=== PATIENT | male | born 1955 | race Caucasian/White ===

== ENCOUNTER 2020-01-13 11:27 | Day surgery (SDC) | payer BC, MEDICARE ==
[2020-01-13] MEDS ORDERED: Sodium Chloride 0.9% 2.5 ML Syringe FLUSH PRN (11:35)
[2020-01-13] MEDS ORDERED: Sodium Chloride 0.9% 10 ML Syringe FLUSH PRN (11:35)
--- NOTE | 2020-01-13 11:46 | EDM.PDOC ---
ED HPI GENERAL MEDICAL PROBLEM - General Chief Complaint: Abdominal Pain Stated Complaint: PAIN IN ABD SENT FROM DR RANGEL Time Seen by Provider: 01/13/20 11:46 Source of Information: Reports: Patient History Limitations: Reports: No Limitations - History of Present Illness INITIAL COMMENTS - FREE TEXT/NARRATIVE: HISTORY AND PHYSICAL: History of present illness: Patient is a 64-year-old male presents to the ED with complaint of right lower abdominal pain. Patient states that he has had generalized abdominal discomfort and bloating for the past week and in the last 3 to 4 days has localized to his right lower quadrant. Patient was seen in Dr. Rangel's clinic this morning and sent to the ED for work-up of possible appendicitis. Patient had labs done in the clinic and have a white count of 13. Patient denies fevers, chills, nausea, vomiting. He states he has been constipated for the past week and a half and recently took some laxatives and had some loose nonbloody stools a couple of days ago. Patient reports history of diabetes. He denies past surgical history. Review of systems: As per history of present illness and below otherwise all systems reviewed and negative. Past medical history: As per history of present illness and as reviewed below otherwise noncontributory. Surgical history: As per history of present illness and as reviewed below otherwise noncontributory. Social history: No reported history of drug or alcohol abuse. Family history: As per history of present illness and as reviewed below otherwise noncontributory. Physical exam: General: Patient sitting comfortably in no acute distress and nontoxic appearing HEENT: Atraumatic, normocephalic, pupils reactive, negative for conjunctival pallor or scleral icterus, mucous membranes moist, throat clear, neck supple, nontender, trachea midline. No meningeal signs. Lungs: Clear to auscultation, breath sounds equal bilaterally, chest nontender. Heart: S1S2, regular, negative for clicks, rubs, or overt murmur. Abdomen: Right lower quadrant tenderness to palpation. Bowel sounds normal. Soft, nondistended. Negative for masses or hepatosplenomegaly. Negative for costovertebral tenderness. No rigidity, rebound, guarding. Pelvis: Stable nontender. Genitourinary: Deferred. Rectal: Deferred. Extremities: Atraumatic, negative for cords or calf pain. Neurovascular unremarkable. Neuro: Awake, alert, oriented. Cranial nerves II through XII unremarkable. Cerebellum unremarkable. Motor and sensory unremarkable throughout. Exam nonfocal. Notes: WBC count 12.62. Creat 1.1. GFR 67 Diagnostics: CT abdomen pelvis with contrast Therapeutics: 1L Normal saline IV Declined pain medication Prescriptions: Impression: Acute appendicitis Plan: Discussed with Dr. Diego, patient will be taken to same day surgery for appendectomy. Definitive disposition and diagnosis as appropriate pending reevaluation and review of above. right lower abdominal Pain Score (Numeric/FACES): 6 - Related Data Allergies Allergy/AdvReac Type Severity Reaction Status Date / Time No Known Allergies Allergy Verified 01/13/20 11:50 Home Meds: Home Meds Aspirin 81 mg PO DAILY 01/13/20 [History] Empagliflozin [Jardiance] 1 tab PO DAILY 01/13/20 [History] Insulin Glarg,Human.Rec.Analog [Lantus] 45 unit SQ BEDTIME 01/13/20 [History] Omeprazole Magnesium [Prilosec Otc] 1 tab PO DAILY PRN 01/13/20 [History] Rosuvastatin [Crestor] 0.5 tab PO BEDTIME 01/13/20 [History] lisinopriL [Lisinopril] 1 tab PO DAILY 01/13/20 [History] sitaGLIPtin Phos/Metformin HCl [Janumet 50-1,000 MG] 1 tab PO BID 01/13/20 [ History] ED ROS GENERAL - Review of Systems Review Of Systems: Comprehensive ROS is negative, except as noted in HPI. ED EXAM, GI/ABD - Physical Exam Exam: See Below (See Dictation) Course - Vital Signs Last Recorded V/S: Last Vital Signs Temp 97.2 F 01/13/20 11:46 Pulse 78 01/13/20 13:31 Resp 18 01/13/20 13:31 BP 104/67 01/13/20 13:31 Pulse Ox 98 01/13/20 13:31 - Orders/Labs/Meds Orders: Active Orders 24 hr Category Date Time Status Sodium Chloride 0.9% [Normal Saline] 1,000 ml Med 01/13/20 13:45 Ordered IV ASDIRECTED Sodium Chloride 0.9% [Saline Flush] Med 01/13/20 11:35 Active 10 ml FLUSH ASDIRECTED PRN Sodium Chloride 0.9% [Saline Flush] Med 01/13/20 11:35 Active 2.5 ml FLUSH ASDIRECTED PRN Saline Lock Insert [OM.PC] Stat Oth 01/13/20 11:35 Ordered Medication Orders Sodium Chloride (Normal Saline) 1,000 mls @ 120 mls/hr IV ASDIRECTED TERESITA Last Admin: 01/13/20 13:52 Dose: 120 mls/hr Sodium Chloride (Saline Flush) 10 ml FLUSH ASDIRECTED PRN PRN Reason: Keep Vein Open Last Admin: 01/13/20 13:54 Dose: 10 ml Sodium Chloride (Saline Flush) 2.5 ml FLUSH ASDIRECTED PRN PRN Reason: Keep Vein Open Last Admin: 01/13/20 13:54 Dose: 2.5 ml Meds: Medications Generic Name Dose Route Start Last Admin Trade Name Freq PRN Reason Stop Dose Admin Sodium Chloride 1,000 mls @ 120 mls/hr 01/13/20 13:45 01/13/20 13:52 Normal Saline IV 120 mls/hr ASDIRECTED TERESITA Administration Sodium Chloride 10 ml 01/13/20 11:35 01/13/20 13:54 Saline Flush FLUSH 10 ml ASDIRECTED PRN Administration Keep Vein Open Sodium Chloride 2.5 ml 01/13/20 11:35 01/13/20 13:54 Saline Flush FLUSH 2.5 ml ASDIRECTED PRN Administration Keep Vein Open Discontinued Medications Generic Name Dose Route Start Last Admin Trade Name Freq PRN Reason Stop Dose Admin Cefoxitin Sodium 2 gm/ Premix 50 mls @ 100 mls/hr 01/13/20 13:32 01/13/20 13: 53 IV 01/13/20 14:01 100 mls/hr ONETIME ONE Administration Iopamidol 100 ml 01/13/20 13:07 01/13/20 13:08 Isovue Multipack-370 (76%) IVPUSH 01/13/20 13:08 100 ml ONETIME STA Administration Departure - Departure Time of Disposition: 14:05 Disposition: Still A Patient 30 Condition: Good Clinical Impression: Acute appendicitis - Discharge Information Referrals: Blas Rangel MD [Primary Care Provider] - Forms: ED Department Discharge Sepsis Event Note - Focused Exam Vital Signs: Vital Signs Temp Pulse Resp BP Pulse Ox 01/13/20 13:31 78 18 104/67 98 01/13/20 11:46 97.2 F 85 18 113/64 99 Date Exam was Performed: 01/13/20 Time Exam was Performed: 14:04 - My Orders Last 24 Hours: My Active Orders 01/13/20 11:35 Sodium Chloride 0.9% [Saline Flush] 10 ml FLUSH ASDIRECTED PRN Sodium Chloride 0.9% [Saline Flush] 2.5 ml FLUSH ASDIRECTED PRN Saline Lock Insert [OM.PC] Stat 01/13/20 13:45 Sodium Chloride 0.9% [Normal Saline] 1,000 ml IV ASDIRECTED - Assessment/Plan Last 24 Hours: My Active Orders 01/13/20 11:35 Sodium Chloride 0.9% [Saline Flush] 10 ml FLUSH ASDIRECTED PRN Sodium Chloride 0.9% [Saline Flush] 2.5 ml FLUSH ASDIRECTED PRN Saline Lock Insert [OM.PC] Stat 01/13/20 13:45 Sodium Chloride 0.9% [Normal Saline] 1,000 ml IV ASDIRECTED
[2020-01-13] MEDS ORDERED: Iopamidol 755 MG/ML 500 ML Multipack Bottle IVPUSH STA (13:07)
--- NOTE | 2020-01-13 13:23 | CT ---
CT abdomen and pelvis Technique: Multiple axial sections were obtained from above the dome of the diaphragm inferiorly through the pubic symphysis. Intravenous contrast was utilized. No oral contrast has been given. Findings: Appendix is mildly enlarged with surrounding inflammatory change which is felt compatible with appendicitis. Other findings: Visualized lung bases show nothing acute. Focal fat is noted next to the ligamentum teres fissure which is a normal variant. Liver shows no other focal abnormality. Spleen appears within normal limits. Adrenal glands show no nodule. Pancreas shows no discrete abnormality. Kidneys show symmetric contrast enhancement. Cyst is noted within the left kidney measuring 2.4 cm in size. Aorta shows atherosclerotic calcification without aneurysm. Numerous gallstones are seen within the gallbladder. No retroperitoneal adenopathy or mesenteric abnormalities are seen. No pelvic mass or adenopathy is seen. Prostate gland is mildly enlarged. Bone window settings were reviewed which shows mild scattered degenerative change within the spine. No acute osseous finding is appreciated. Impression: 1. Findings compatible with appendicitis. 2. Numerous gallstones. 3. Other findings believed to be incidental as noted above. Diagnostic code #5 This report was dictated in MDT
[2020-01-13] MEDS ORDERED: cefOXitin 2 GM in Premix Bag 1 BAG IV ONE (13:32)
[2020-01-13] MEDS ORDERED: Sodium Chloride 0.9% 1,000 ML IV SCH (13:45)
[2020-01-13] MEDS ORDERED: Lactated Ringers 1,000 ML IV SCH (14:30)
--- NOTE | 2020-01-13 14:35 | PCM.SN.2 ---
- Free Text/Narrative Note: pt seen, chart reviewed, acute appendicitis; to or, rb dw pt re bleeding/ infection/damage to nearby organs/pain manangement/postop course; pt concur and proceed; [id number]
[2020-01-13] MEDS ORDERED: Bupivacaine 0.25%/EPINEPHrine 1:200,000 10 ML SDV ONE (14:37)
[2020-01-13] MEDS ORDERED: Midazolam 1 MG/ML 2 ML SDV ONE (14:48)
[2020-01-13] MEDS ORDERED: Propofol 200 MG/20 ML SDV ONE (14:48)
[2020-01-13] MEDS ORDERED: fentaNYL 250 MCG/5 ML SDV ONE (14:48)
[2020-01-13] MEDS ORDERED: Rocuronium 100 MG/10 ML Syringe ONE ×2 (14:49→15:13)
[2020-01-13] MEDS ORDERED: Lidocaine 2% 5 ML SDV ONE (14:50)
[2020-01-13] MEDS ORDERED: Glycopyrrolate 0.2 MG/ML SDV ONE (14:50)
[2020-01-13] MEDS ORDERED: Ketorolac 30 MG/ML SDV ONE (14:50)
[2020-01-13] MEDS ORDERED: Ondansetron 4 MG/2 ML SDV ONE (14:50)
[2020-01-13] MEDS ORDERED: Sugammadex Sodium 200 MG/2 ML VIAL ONE (14:54)
[2020-01-13] MEDS ORDERED: Acetaminophen 1,000 MG in Premix Bag 1 BAG IV PRN (15:33)
[2020-01-13] MEDS ORDERED: fentaNYL 100 MCG/2 ML SDV IVPUSH PRN (15:33)
--- NOTE | 2020-01-13 15:33 | PCM.PREANE ---
Preanesthetic Assessment - Anesthesia/Transfusion/Family Hx Anesthesia History: Prior Anesthesia Without Reaction Family History of Anesthesia Reaction: No Transfusion History: No Prior Transfusion(s) - Physical Assessment NPO Status Date: 01/13/20 NPO Status Time: 09:00 Vital Signs: Last Vital Signs Temp 36.2 C 01/13/20 11:46 Pulse 78 01/13/20 13:31 Resp 18 01/13/20 13:31 BP 104/67 01/13/20 13:31 Pulse Ox 98 01/13/20 13:31 Height: 1.93 m Weight: 95.254 kg ASA Class: 2E Thyro-Mental Finger Breadths: 3 Mouth Opening Finger Breadths: 3 - Allergies Allergies/Adverse Reactions: Allergies Allergy/AdvReac Type Severity Reaction Status Date / Time No Known Allergies Allergy Verified 01/13/20 11:50 - Acknowledgements Anesthesia Type Planned: General Anesthesia Pt an Appropriate Candidate for the Planned Anesthesia: Yes Alternatives and Risks of Anesthesia Discussed w Pt/Guardian: Yes Pt/Guardian Understands and Agrees with Anesthesia Plan: Yes PreAnesthesia Questionnaire Cardiovascular History: Reports: High Cholesterol Gastrointestinal History: Reports: GERD Musculoskeletal History: Reports: Arthritis Endocrine/Metabolic History: Reports: Diabetes, Type II Oncologic (Cancer) History: Reports: Basal Cell Carcinoma - SUBSTANCE USE Smoking Status *Q: Never Smoker Recreational Drug Use History: No - HOME MEDS Home Medications: Home Meds Aspirin 81 mg PO DAILY 01/13/20 [History] Empagliflozin [Jardiance] 1 tab PO DAILY 01/13/20 [History] Insulin Glarg,Human.Rec.Analog [Lantus] 45 unit SQ BEDTIME 01/13/20 [History] Omeprazole Magnesium [Prilosec Otc] 1 tab PO DAILY PRN 01/13/20 [History] Rosuvastatin [Crestor] 0.5 tab PO BEDTIME 01/13/20 [History] lisinopriL [Lisinopril] 1 tab PO DAILY 01/13/20 [History] sitaGLIPtin Phos/Metformin HCl [Janumet 50-1,000 MG] 1 tab PO BID 01/13/20 [ History] - CURRENT (IN HOUSE) MEDS Current Meds: Current Medications Lactated Ringer's (Ringers, Lactated) 1,000 mls @ 125 mls/hr IV ASDIRECTED TERESITA Sodium Chloride (Saline Flush) 10 ml FLUSH ASDIRECTED PRN PRN Reason: Keep Vein Open Last Admin: 01/13/20 13:54 Dose: 10 ml Sodium Chloride (Saline Flush) 2.5 ml FLUSH ASDIRECTED PRN PRN Reason: Keep Vein Open Last Admin: 01/13/20 13:54 Dose: 2.5 ml Discontinued Medications Bupivacaine HCl/Epinephrine Bitart (Marcaine 0.25%/Epinephrine 1:200,000) Confirm Administered Dose 20 ml .ROUTE .STK-MED ONE Stop: 01/13/20 14:38 Fentanyl (Sublimaze) Confirm Administered Dose 250 mcg .ROUTE .STK-MED ONE Stop: 01/13/20 14:49 Glycopyrrolate (Robinul) Confirm Administered Dose 0.2 mg .ROUTE .STK-MED ONE Stop: 01/13/20 14:51 Sodium Chloride (Normal Saline) 1,000 mls @ 120 mls/hr IV ASDIRECTED TERESITA Cefoxitin Sodium 2 gm/ Premix 50 mls @ 100 mls/hr IV ONETIME ONE Stop: 01/13/20 14:01 Last Admin: 01/13/20 13:53 Dose: 100 mls/hr Iopamidol (Isovue Multipack-370 (76%)) 100 ml IVPUSH ONETIME STA Stop: 01/13/20 13:08 Last Admin: 01/13/20 13:08 Dose: 100 ml Ketorolac Tromethamine (Toradol) Confirm Administered Dose 30 mg .ROUTE .STK- MED ONE Stop: 01/13/20 14:51 Lidocaine (Xylocaine-Mpf 2%) Confirm Administered Dose 5 ml .ROUTE .STK-MED ONE Stop: 01/13/20 14:51 Midazolam HCl (Versed 1 Mg/Ml) Confirm Administered Dose 2 mg .ROUTE .STK-MED ONE Stop: 01/13/20 14:49 Ondansetron HCl (Zofran) Confirm Administered Dose 4 mg .ROUTE .STK-MED ONE Stop: 01/13/20 14:51 Propofol (Diprivan 20 Ml) Confirm Administered Dose 200 mg .ROUTE .STK-MED ONE Stop: 01/13/20 14:49 Rocuronium [place] (Zemuron) Confirm Administered Dose 100 mg .ROUTE .STK-MED ONE Stop: 01/13/20 14:50 Rocuronium [place] (Zemuron) Confirm Administered Dose 100 mg .ROUTE .STK-MED ONE Stop: 01/13/20 15:14 Sugammadex Sodium (Bridion) Confirm Administered Dose 200 mg .ROUTE .STK-MED ONE Stop: 01/13/20 14:55
--- NOTE | 2020-01-13 16:36 | PCM.OPNOTE ---
- General Post-Op/Procedure Note Date of Surgery/Procedure: 01/13/20 Operative Procedure(s): lap appy Findings: appendix is appendicitis supprativa, and completely, top to bottom engulfed by surround stuctures, suggested appendicitis has been going on for 5 -7 days; gross perf not observed; [id number] Pre Op Diagnosis: acute appy Post-Op Diagnosis: Same Anesthesia Technique: General ET Tube Primary Surgeon: Dallas Diego Pathology: sent Complications: None Condition: Good
[2020-01-13] MEDS ORDERED: Acetaminophen/oxyCODONE 325-5 MG Tab PO PRN (16:37)
[2020-01-13] MEDS ORDERED: Morphine 2 MG/ML Syringe IVPUSH PRN (16:37)
[2020-01-13] MEDS ORDERED: Ondansetron 4 MG/2 ML SDV IVPUSH PRN (16:38)
--- NOTE | 2020-01-13 17:02 | PCM.POSTAN ---
POST ANESTHESIA ASSESSMENT - MENTAL STATUS Mental Status: Alert - VITAL SIGNS Vital Signs: Last Vital Signs Temp 36.7 C 01/13/20 16:31 Pulse 78 01/13/20 16:58 Resp 14 01/13/20 16:58 BP 130/67 01/13/20 16:58 Pulse Ox 97 01/13/20 16:58 - RESPIRATORY Respiratory Status: Respiratory Rate WNL - CARDIOVASCULAR CV Status: Pulse Rate WNL - GASTROINTESTINAL GI Status: No Symptoms - POST OP HYDRATION Hydration Status: Adequate & Stable
[2020-01-13] MEDS: Lactated Ringers 1,000 ML IV SCH (17:54)
[2020-01-13] MEDS: cefOXitin 1 GM in Premix Bag 1 BAG IV SCH ×2 (17:59→22:09)
[2020-01-14] MEDS: cefOXitin 1 GM in Premix Bag 1 BAG IV SCH (03:58)
[2020-01-14] MEDS: Lactated Ringers 1,000 ML IV SCH (03:59)
--- NOTE | 2020-01-14 09:13 | CONS ---
DATE OF CONSULTATION: 01/13/2020 DATE OF : 1955 PRIMARY CARE PHYSICIAN: Blas Fernández MD REASON FOR CONSULTATION: Consult from Pa Gavin in the emergency room and from Blas Fernández MD. Consulting for abdominal pain. HISTORY OF PRESENT ILLNESS: The patient is 64-year-old gentleman, otherwise in his usual health, complaining about 2-day history of acute onset of periumbilical pain, subsequently migrated to the right lower quadrant. Sought help in the emergency room. CAT scan shows dilated appendix consistent with appendicitis. Surgery was then consulted. The patient denied prior episode, and pain is 8 on the pain scale and denies fever, chills, or diarrhea. PAST MEDICAL HISTORY: Significant for diabetes. No [place], CVA, hypertension. SOCIAL HISTORY: Denied tobacco or alcohol abuse. PAST SURGICAL HISTORY: No abdominal surgery. FAMILY HISTORY: Denied family history of malignant hyperthermia. PHYSICAL EXAMINATION: GENERAL: A very pleasant gentleman, smiled to the doctor, very polite and well built and much younger than stated age. HEENT: Normocephalic and atraumatic. Sclerae anicteric. LUNGS: Clear to auscultation. HEART: Regular rate and rhythm. ABDOMEN: Soft, nondistended. No pulsating tender midline abdominal structure. No surgical scar. No hernia. Exquisite tenderness in the right lower quadrant. Exquisite tenderness on the McBurney's point and no rebound tenderness. Negative Rovsing sign. LABORATORY DATA: White count of 13, and CAT scan shows a dilated appendix. IMPRESSION: Physical exam and clinical history and imaging study consistent with acute appendicitis. The patient would benefit from a timely surgical intervention. So we will proceed with laparoscopic versus open appendectomy and risks and benefits discussed with the patient including bleeding, infection, and damage to nearby organ and if perforated may put drain, postop course, and pain management. The patient concurred to proceed as planned. As always, thank you for the kind referral. TRISTIN / GRACIELA /[id number]
--- NOTE | 2020-01-14 10:05 | OR ---
SURGEON: Dallas Diego MD DATE OF PROCEDURE: 01/13/2020 PREOPERATIVE DIAGNOSIS: Acute appendicitis. POSTOPERATIVE DIAGNOSIS: Acute appendicitis. PROCEDURE PERFORMED: Laparoscopic appendectomy. PRIMARY SURGEON: Dallas Diego MD COMPLICATIONS: None. FINDINGS: The appendix is completely scarred down and forming like an omental cake with the whole appendix and took some challenge to dissect the appendix out from surrounding structures, suggests that the appendicitis has been going on for at least 5 to 7 days. Gross perforation is not observed. Preop CAT scan shows the patient has numerous gallstones. We will address that issue when the patient follows up in office. PROCEDURE IN DETAIL: The patient was taken to the operating room and placed in the supine position. Following induction of general endotracheal anesthesia, the patient's abdomen was prepped and draped in the sterile fashion. A time-out has been called. The patient was identified. The procedure was identified. The antibiotics were identified. The procedure then proceeded. The abdomen was prepped and draped in a standard fashion. After assessment of appropriate landmarks, a 12 millimeter trocar was inserted supraumbilically using Optiview and pneumoperitoneum was then achieved. This was followed with placement of 5 millimeter port in the right upper quadrant and another 5 millimeter port infraumbilically. The camera was inserted supraumbilical site and two laparoscopic Chanel retractors were then inserted through the other two sites. Following the cecum, the appendix was located. The appendix was then lifted up, and using a GI stapler the appendix was amputated at the base. And using the GI stapler, the mesoappendix was then amputated. The appendix was retrieved by an endoscopic bag and sent for pathologist. This was then followed by re-insertion of the camera to examine the staple line, and hemostasis. The trocars were then removed. The umbilical site was closed with 2-0 Vicryl deep stitch and skin dwayne for the skin; the other two 5 mm port sites were closed with skin dwayne for the skin and followed with appropriate dressings. The patient was then awakened, extubated, and transferred to the recovery room in hemodynamically stable condition. Prior to closing, sponge count and instrument count was correct. The patient tolerated the procedure well. There were no intraoperative complications. Intraoperative findings are as dictated above. Dr. Diego was present throughout the whole procedure. As always, thank you for the kind referral. TRISTIN / GRACIELA /[id number]
== END 2020-01-14 12:00 | disposition home or self-care (01) ==
LOC: MW.ED 11:27 → MW.SDS 14:14 → MW.MS 14:15 → MW.SDS 01-14 12:00
PROVIDERS: ATTEND Surgery
DX: K35.80 Unspecified acute appendicitis (principal); E11.9 Type 2 diabetes mellitus without complications; E78.00 Pure hypercholesterolemia, unspecified; Z79.82 Long term (current) use of aspirin; Z79.4 Long term (current) use of insulin; Z79.899 Other long term (current) drug therapy
CPT/HCPCS: 44970; 74177; 82962; 96365; 99285; C1776; J0694; J1885; J2001; J2250; J2405; J2704; J3010; J3490; J7120; Q9967; 88304; 99284; J7030

== ENCOUNTER 2020-05-04 23:10 | Emergency (ER) | payer MEDICARE, BC ==
[2020-05-04] MEDS ORDERED: Sodium Chloride 0.9% 10 ML Syringe FLUSH PRN (23:59)
[2020-05-04] MEDS ORDERED: Sodium Chloride 0.9% 2.5 ML Syringe FLUSH PRN (23:59)
[2020-05-04] MEDS ORDERED: Sodium Chloride 0.9% 1,000 ML IV ONE (23:59)
[2020-05-04] MEDS ORDERED: HYDROmorphone 1 MG/ML Syringe IVPUSH ONE (23:59)
[2020-05-04] MEDS ORDERED: Ondansetron 4 MG/2 ML SDV IVPUSH ONE (23:59)
[2020-05-05 00:45] LABS: BLOOD UREA NITROGEN,BUN 18 mg/dL (7.0-18.0); CARBON DIOXIDE,CO2 24.2 mmol/L (21.0-32.0); CHLORIDE,CL 100 mmol/L (98-107); GLUCOSE RANDOM 201 mg/dL (74-106); LIPASE 202 U/L (73-393); SODIUM,NA 135 mmol/L (136-148)
[2020-05-05] MEDS ORDERED: Iopamidol 755 Mg/ML 100 ML Bottle IVPUSH ONE (01:02)
--- NOTE | 2020-05-05 01:56 | CT ---
Indication: Diffuse abdominal pain Technique: Contrast enhanced axial CT imaging through the abdomen and pelvis. 100 mL Isovue 370 contrast agent was administered intravenously. Sagittal and coronal reconstructions are provided. Comparison: CT abdomen pelvis with contrast 01/13/2012 Findings: There is an ill-defined hypoenhancing mass arising from the pancreatic body measuring 5.0 x 3.0 x 3.5 cm. The mass extends superiorly to encase the celiac trunk, proximal common hepatic artery common proximal splenic artery with associated mild to moderate luminal stenosis. The mass also abuts the superior margin of the superior mesenteric artery, without encasing it. There is severe narrowing the confluence of the superior mesenteric vein and portal vein which is also encased by the mass. The distal pancreas is atrophic. Multiple mildly enlarged lymph nodes are noted in the central mesentery. There are multiple small slightly hyperdense stones layering in the gallbladder. There is mild gallbladder wall thickening. There is no significant abnormality of the liver, spleen, adrenal glands, and kidneys. A small renal cortical cyst is noted on the left. There is normal caliber of the abdominal aorta. The stomach, small bowel, and colon are unremarkable. There is moderate prostatomegaly. Impression: 1. Cholelithiasis with mild gallbladder wall thickening, raising possibility of acute cholecystitis. Further evaluation is recommended with ultrasound. 2. Ill-defined hypoenhancing mass measuring up to 5 cm arising from the pancreatic body, highly concerning for pancreatic adenocarcinoma. 3. Complete encasement of the celiac trunk, proximal common hepatic artery, and proximal splenic artery by the pancreatic mass with mild to moderate luminal stenosis. 4. 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 5. Mild central mesenteric lymphadenopathy. Metastatic disease is not excluded. 6. Case discussed with Dr. Trujillo at 1:50 a.m. Please note that all CT scans at this facility use dose modulation, iterative reconstruction, and/or weight-based dosing when appropriate to reduce radiation dose to as low as reasonably achievable. Dictated by Alejandro Mirza MD @ May 05 2020 1:27AM Signed by Dr. Alejandro Mirza @ May 05 2020 1:53AM
--- NOTE | 2020-05-05 03:51 | US ---
INDICATION: Upper abdominal pain TECHNIQUE: Ultrasound abdomen limited. Sonographic images of the right upper quadrant were obtained using wilson-scale and color Doppler images. COMPARISON: A CT scan from the same date FINDINGS: Liver: Mildly increased hepatic echogenicity, partially related to technique. No discrete hepatic lesion seen. Gallbladder: Cholelithiasis. Upper limits of normal gallbladder wall thickness. A reported positive sonographic Wren`s sign. Common bile duct: 7 mm. The most distal portion of the CBD is not seen. Pancreas: A hypoechoic pancreatic body mass. Right kidney: 12.3 x 6.0 x 5.4 cm. Unremarkable echotexture and cortex. No masses, stones, or hydronephrosis. IMPRESSION: Cholelithiasis with upper limits of normal gallbladder wall thickness and a positive sonographic Wren`s sign. In the correct clinical setting, the findings could represent early cholecystitis. Correlate clinically. A pancreatic body mass, as seen on the recent CT scan, consistent with primary pancreatic malignancy, probably adenocarcinoma. Borderline dilatation of the CBD. Dictated by Nasim Quintanilla MD @ 05/05/2020 3:50:22 AM Dictated by: Nasim Quintanilla MD @ 05/05/2020 03:50:28 (Electronically Signed)
--- NOTE | 2020-05-05 04:34 | EDM.PDOC ---
ED HPI GENERAL MEDICAL PROBLEM - General Chief Complaint: Abdominal Pain Stated Complaint: STOMACH, BACK PAIN Time Seen by Provider: 05/05/20 00:01 - History of Present Illness INITIAL COMMENTS - FREE TEXT/NARRATIVE: HISTORY AND PHYSICAL: History of present illness: This is a 64-year-old gentleman with a history significant for diabetes who is status post appendectomy in December 2019 who presents to the ER today secondary to abdominal pain radiating to his back after eating supper tonight. Patient reports that he has had similar pain that comes 1-2 times per day for the last 2 to 3-month however today the pain was severe requiring him to come to the ER for assistance with his pain. Patient denies any recent fevers, shakes, chills, nausea, vomiting, diarrhea. Patient reports that he works with [employer] in the [employer]. Patient denies any new chemicals. Patient reports today he had 1 loose bowel movement. Patient denies any change in eye color, change in color of stool, change in color of urine. Patient denies any chest pain or shortness of breath. Patient denies any known coronavirus exposures. Patient reports that he has lost approximately 30 to 40 pounds within the last year. He reports he weighs less than 200 pounds currently and about a year ago he weighed 235 pounds. Patient reports this was unintentional weight loss. Last p.o. intake 6 PM. Patient denies dysuria frequency urgency Patient denies any history of hypertension, liver, lung, kidney problems. Patient denies any history of coronary artery disease. Patient does have a history of diabetes and is status post appendectomy December 2019. No known drug allergies No tobacco alcohol or drugs Review of systems: As per history of present illness and below otherwise all systems reviewed and negative. Past medical history: As per history of present illness and as reviewed below otherwise noncontributory. Surgical history: As per history of present illness and as reviewed below otherwise noncontributory. Social history: No reported history of drug or alcohol abuse. Family history: As per history of present illness and as reviewed below otherwise noncontributory. Physical exam: Constitutional: Patient is oriented to person, place, and time. Appears well- developed and well-nourished. No distress. HEENT: Moist mucous membranes Head: Normocephalic and atraumatic Eyes: Right eye exhibits no discharge. Left eye exhibits no discharge. No scleral icterus Neck: Normal range of motion. No tracheal deviation present. Cardiovascular: Normal rate and regular rhythm. Pulmonary: Effort normal, no respiratory distress. Abd: Soft, nondistended, no rebound/guarding, no psoas or obturator signs, no tenderness at Mcberney's point, no Wren's sign. Pt does not present with an exam that would be consistent with an acute surgical abdomen at this time. Patient was tenderness to palpation midepigastric and right upper quadrant. No jaundice. Musculoskeletal: Normal range of motion Neurologic: Alert and oriented to person, place and time. Skin: Dailey, warm and dry. Psychiatric: Normal mood and affect. Behavior is normal. Judgment and thought content normal. Nursing note and vital signs have been reviewed Diagnostics: CT scan of the abdomen and pelvis concerning for pancreatic mass which appears to be consistent with possible pancreatic adenocarcinoma. Concern for possible cholecystitis by the radiologist on CT scan and has recommended ultrasound of the gallbladder. Ultrasound the gallbladder reveals thickened gallbladder wall with a positive sonographic Wren sign. Consistent with possible cholecystitis. CBC, CMP, lipase, UA within normal limits Therapeutics: Dilaudid 0.5 mg IV, Zofran 4 mg IV, NSS x1 L Assessment and plan: This is a 64-year-old gentleman who presented to the ER today secondary to intermittent episodes of abdominal pain x2 to 3 months with recent 40 pound weight loss over the last year. Patient's CT scan is concerning for pancreatic adenocarcinoma. Patient's ultrasound is concerning for possible cholecystitis. Patient is a diabetic. Patient is afebrile with a normal labs. Unfortunately we are unable to accommodate him here at [facility] secondary to the operating room currently shut down secondary to technical issues. I have discussed the case with Dr. Ozuna who is agreed to accept patient for transfer to [facility] for definitive management and evaluation by surgery. [facility] on diversion [facility] on diversion Plan discussed with patient and he is amenable to transfer. He has requested transfer to [place] if [place] is unavailable. abdomen Pain Score (Numeric/FACES): 8 - Related Data Allergies Allergy/AdvReac Type Severity Reaction Status Date / Time No Known Allergies Allergy Verified 05/04/20 23:48 Home Meds: Home Meds Empagliflozin [Jardiance] 25 mg PO DAILY 01/13/20 [History] Insulin Glarg,Human.Rec.Analog [Lantus] 45 unit SQ BEDTIME 01/13/20 [History] Omeprazole Magnesium [Prilosec Otc] 20 mg PO DAILY PRN 01/13/20 [History] Rosuvastatin [Crestor] 5 mg PO BEDTIME 01/13/20 [History] lisinopriL [Lisinopril] 5 mg PO DAILY 01/13/20 [History] sitaGLIPtin Phos/Metformin HCl [Janumet 50-1,000 MG] 1 tab PO BID 01/13/20 [History] Past Medical History HEENT History: Reports: Impaired Vision, Other (See Below) Other HEENT History: wears glasses Cardiovascular History: Reports: High Cholesterol Gastrointestinal History: Reports: GERD Musculoskeletal History: Reports: Arthritis Endocrine/Metabolic History: Reports: Diabetes, Type II Oncologic (Cancer) History: Reports: Basal Cell Carcinoma - Infectious Disease History Infectious Disease History: Reports: Chicken Pox - Past Surgical History HEENT Surgical History: Reports: None Cardiovascular Surgical History: Reports: None GI Surgical History: Reports: Appendectomy Endocrine Surgical History: Reports: None Musculoskeletal Surgical History: Reports: None Oncologic Surgical History: Reports: None Social & Family History - Family History Family Medical History: Noncontributory - Tobacco Use Smoking Status *Q: Former Smoker Used Tobacco, but Quit: Yes Month/Year Tobacco Last Used: 1999 - Caffeine Use Caffeine Use: Reports: Coffee - Recreational Drug Use Recreational Drug Use: No ED ROS GENERAL - Review of Systems Review Of Systems: Comprehensive ROS is negative, except as noted in HPI. ED EXAM, GENERAL - Physical Exam Exam: See Below Course - Vital Signs Last Recorded V/S: Last Vital Signs Temp 96.8 F L 05/04/20 23:35 Pulse 78 05/05/20 02:00 Resp 18 05/05/20 02:00 BP 146/73 H 05/05/20 02:00 Pulse Ox 94 L 05/05/20 02:00 - Orders/Labs/Meds Orders: Active Orders 24 hr Category Date Time Status EKG Documentation Completion [RC] AM Care 05/04/20 23:59 Active CORONAVIRUS COVID-19 PCR PHL Stat Lab 05/05/20 04:26 Ordered Sodium Chloride 0.9% [Saline Flush] Med 05/04/20 23:59 Active 10 ml FLUSH ASDIRECTED PRN Sodium Chloride 0.9% [Saline Flush] Med 05/04/20 23:59 Active 2.5 ml FLUSH ASDIRECTED PRN Saline Lock Insert [OM.PC] Stat Oth 05/04/20 23:59 Ordered Medication Orders Sodium Chloride (Saline Flush) 10 ml FLUSH ASDIRECTED PRN PRN Reason: Keep Vein Open Last Admin: 05/05/20 00:19 Dose: 10 ml Documented by: ALEXIS Sodium Chloride (Saline Flush) 2.5 ml FLUSH ASDIRECTED PRN PRN Reason: Keep Vein Open Last Admin: 05/05/20 00:19 Dose: 2.5 ml Documented by: ALEXIS Labs: Laboratory Tests 05/05/20 05/05/20 05/05/20 Range/Units 00:03 00:03 00:03 WBC 9.80 (4.0-11.0) K/uL RBC 5.18 (4.50-5.90) M/uL Hgb 14.3 (13.0-17.0) g/dL Hct 44.1 (38.0-50.0) % MCV 85.1 (80.0-98.0) fL MCH 27.6 (27.0-32.0) pg MCHC 32.4 (31.0-37.0) g/dL RDW Std Deviation 40.0 (28.0-62.0) fl RDW Coeff of Wild 13 (11.0-15.0) % Plt Count 213 (150-400) K/uL MPV 8.90 (7.40-12.00) fL Neut % (Auto) 79.3 (48.0-80.0) % Lymph % (Auto) 12.1 L (16.0-40.0) % [place] % (Auto) 8.0 (0.0-15.0) % Eos % (Auto) 0.5 (0.0-7.0) % Baso % (Auto) 0.1 (0.0-1.5) % Neut # (Auto) 7.8 H (1.4-5.7) K/uL Lymph # (Auto) 1.2 (0.6-2.4) K/uL [place] # (Auto) 0.8 (0.0-0.8) K/uL Eos # (Auto) 0.1 (0.0-0.7) K/uL Baso # (Auto) 0.0 (0.0-0.1) K/uL Nucleated RBC % 0.0 /100WBC Nucleated RBCs # 0 K/uL Lactate 1.3 (0.20-2.00) mmol/L Sodium 135 L (136-148) mmol/L Potassium 4.0 (3.5-5.1) mmol/L Chloride 100 (98-107) mmol/L Carbon Dioxide 24.2 (21.0-32.0) mmol/L BUN 18 (7.0-18.0) mg/dL Creatinine 0.9 (0.8-1.3) mg/dL Est Cr Clr Drug Dosing 100.46 mL/min Estimated GFR (MDRD) > 60.0 ml/min Glucose 201 H (74-106) mg/dL Calcium 8.7 (8.5-10.1) mg/dL Total Bilirubin 0.5 (0.2-1.0) mg/dL AST 14 L (15-37) IU/L ALT 22 (14-63) IU/L Alkaline Phosphatase 88 (46-116) U/L Troponin I < 0.050 (0.000-0.056) ng/mL Total Protein 7.4 (6.4-8.2) g/dL Albumin 3.7 (3.4-5.0) g/dL Globulin 3.7 (2.6-4.0) g/dL Albumin/Globulin Ratio 1.0 (0.9-1.6) Lipase 202 (73-393) U/L Urine Color Urine Appearance Urine pH (5.0-8.0) Ur Specific [place] (1.001-1.035) Urine Protein (NEGATIVE) mg/dL Urine Glucose (UA) (NEGATIVE) mg/dL Urine Ketones (NEGATIVE) mg/dL Urine Occult Blood (NEGATIVE) Urine Nitrite (NEGATIVE) Urine Bilirubin (NEGATIVE) Urine Urobilinogen (<2.0) EU/dL Ur Leukocyte Esterase (NEGATIVE) 05/05/20 Range/Units 01:32 WBC (4.0-11.0) K/uL RBC (4.50-5.90) M/uL Hgb (13.0-17.0) g/dL Hct (38.0-50.0) % MCV (80.0-98.0) fL MCH (27.0-32.0) pg MCHC (31.0-37.0) g/dL RDW Std Deviation (28.0-62.0) fl RDW Coeff of Wild (11.0-15.0) % Plt Count (150-400) K/uL MPV (7.40-12.00) fL Neut % (Auto) (48.0-80.0) % Lymph % (Auto) (16.0-40.0) % [place] % (Auto) (0.0-15.0) % Eos % (Auto) (0.0-7.0) % Baso % (Auto) (0.0-1.5) % Neut # (Auto) (1.4-5.7) K/uL Lymph # (Auto) (0.6-2.4) K/uL [place] # (Auto) (0.0-0.8) K/uL Eos # (Auto) (0.0-0.7) K/uL Baso # (Auto) (0.0-0.1) K/uL Nucleated RBC % /100WBC Nucleated RBCs # K/uL Lactate (0.20-2.00) mmol/L Sodium (136-148) mmol/L Potassium (3.5-5.1) mmol/L Chloride (98-107) mmol/L Carbon Dioxide (21.0-32.0) mmol/L BUN (7.0-18.0) mg/dL Creatinine (0.8-1.3) mg/dL Est Cr Clr Drug Dosing mL/min Estimated GFR (MDRD) ml/min Glucose (74-106) mg/dL Calcium (8.5-10.1) mg/dL Total Bilirubin (0.2-1.0) mg/dL AST (15-37) IU/L ALT (14-63) IU/L Alkaline Phosphatase (46-116) U/L Troponin I (0.000-0.056) ng/mL Total Protein (6.4-8.2) g/dL Albumin (3.4-5.0) g/dL Globulin (2.6-4.0) g/dL Albumin/Globulin Ratio (0.9-1.6) Lipase (73-393) U/L Urine Color YELLOW Urine Appearance CLEAR Urine pH 5.5 (5.0-8.0) Ur Specific Polk <= 1.005 (1.001-1.035) Urine Protein NEGATIVE (NEGATIVE) mg/dL Urine Glucose (UA) >=1000 (NEGATIVE) mg/dL Urine Ketones TRACE H (NEGATIVE) mg/dL Urine Occult Blood NEGATIVE (NEGATIVE) Urine Nitrite NEGATIVE (NEGATIVE) Urine Bilirubin NEGATIVE (NEGATIVE) Urine Urobilinogen 0.2 (<2.0) EU/dL Ur Leukocyte Esterase NEGATIVE (NEGATIVE) Meds: Medications Generic Name Dose Route Start Last Admin Trade Name Freq PRN Reason Stop Dose Admin Sodium Chloride 10 ml 05/04/20 23:59 05/05/20 00:19 Saline Flush FLUSH 10 ml ASDIRECTED PRN Administration Keep Vein Open Sodium Chloride 2.5 ml 05/04/20 23:59 05/05/20 00:19 Saline Flush FLUSH 2.5 ml ASDIRECTED PRN Administration Keep Vein Open Discontinued Medications Generic Name Dose Route Start Last Admin Trade Name Freq PRN Reason Stop Dose Admin Hydromorphone HCl 0.5 mg 05/04/20 23:59 05/05/20 00:17 Dilaudid IVPUSH 05/05/20 00:00 0.5 mg ONETIME ONE Administration Sodium Chloride 1,000 mls @ 999 mls/hr 05/04/20 23:59 05/05/20 00:15 Normal Saline IV 05/05/20 00:59 999 mls/hr .Bolus ONE Administration Iopamidol 100 ml 05/05/20 01:02 05/05/20 01:02 Isovue-370 (76%) IVPUSH 05/05/20 01:03 100 ml ONETIME ONE Administration Ondansetron HCl 4 mg 05/04/20 23:59 05/05/20 00:15 Zofran IVPUSH 05/05/20 00:00 4 mg ONETIME ONE Administration Departure - Departure Time of Disposition: 04:34 Disposition: DC/Tfer to Acute Hospital 02 Condition: Good Clinical Impression: Abdominal pain, Cholecystitis, Pancreatic mass - Discharge Information Referrals: Blas Fernández MD [Primary Care Provider] - Sepsis Event Note (ED) - Evaluation Sepsis Screening Result: No Definite Risk - Focused Exam Vital Signs: Vital Signs Temp Pulse Resp BP Pulse Ox 05/05/20 02:00 78 18 146/73 H 94 L 05/05/20 01:00 83 18 157/77 H 94 L 05/04/20 23:35 96.8 F L 76 20 149/49 H 98 - My Orders Last 24 Hours: My Active Orders 05/04/20 23:59 EKG Documentation Completion [RC] AM Sodium Chloride 0.9% [Saline Flush] 10 ml FLUSH ASDIRECTED PRN Sodium Chloride 0.9% [Saline Flush] 2.5 ml FLUSH ASDIRECTED PRN Saline Lock Insert [OM.PC] Stat 05/05/20 04:26 CORONAVIRUS COVID-19 PCR PHL Stat - Assessment/Plan Last 24 Hours: My Active Orders 05/04/20 23:59 EKG Documentation Completion [RC] AM Sodium Chloride 0.9% [Saline Flush] 10 ml FLUSH ASDIRECTED PRN Sodium Chloride 0.9% [Saline Flush] 2.5 ml FLUSH ASDIRECTED PRN Saline Lock Insert [OM.PC] Stat 05/05/20 04:26 CORONAVIRUS COVID-19 PCR PHL Stat
== END 2020-05-05 05:25 ==
LOC: MW.ED 23:10
DX: K81.9 Cholecystitis, unspecified (principal); K86.89 Other specified diseases of pancreas; E78.00 Pure hypercholesterolemia, unspecified; E11.9 Type 2 diabetes mellitus without complications; K21.9 Gastro-esophageal reflux disease without esophagitis; Z79.4 Long term (current) use of insulin; Z79.899 Other long term (current) drug therapy; Z87.891 Personal history of nicotine dependence; Z20.828 Contact with and (suspected) exposure to other viral communicable diseases
CPT/HCPCS: 36415; 74177; 76705; 80053; 81003; 83605; 83690; 84484; 85025; 93005; 96361; 96374; 96375; 99285; J1170; J2405; J7030; Q9967; U0002

== ENCOUNTER 2020-05-31 06:45 | Day surgery (SDC) | payer BC, MEDICARE ==
[~2020-05-31 06:45] MED LIST: Lactated Ringers 1,000 ML IV SCH
[2020-05-31] MEDS ORDERED: Propofol 200 MG/20 ML SDV ONE ×2 (07:32→08:36)
[2020-05-31] MEDS ORDERED: Midazolam 1 MG/ML 2 ML SDV ONE (07:35)
--- NOTE | 2020-05-31 07:44 | PCM.PREANE ---
Preanesthetic Assessment - Anesthesia/Transfusion/Family Hx Anesthesia History: Prior Anesthesia Without Reaction Family History of Anesthesia Reaction: No Transfusion History: No Prior Transfusion(s) Intubation History: Unknown - Review of Systems General: No Symptoms Pulmonary: No Symptoms Cardiovascular: No Symptoms Gastrointestinal: Hematochezia Neurological: No Symptoms Other: Reports: None - Physical Assessment Vital Signs: Last Vital Signs Temp 36.6 C 05/31/20 07:37 Pulse 82 05/31/20 07:37 Resp 16 05/31/20 07:37 BP 111/63 05/31/20 07:37 Pulse Ox 99 05/31/20 07:37 Height: 6 ft 4 in Weight: 89.358 kg ASA Class: 3 Mental Status: Alert & Oriented x3 Airway Class: Mallampati = 1 Dentition: Reports: Normal Dentition Thyro-Mental Finger Breadths: 3 Mouth Opening Finger Breadths: 3 ROM/Head Extension: Full Lungs: Clear to Auscultation, Normal Respiratory Effort Cardiovascular: Regular Rate, Regular Rhythm - Allergies Allergies/Adverse Reactions: Allergies Allergy/AdvReac Type Severity Reaction Status Date / Time No Known Allergies Allergy Verified 05/26/20 10:49 - Blood Blood Available: No - Anesthesia Plan Pre-Op Medication Ordered: None - Acknowledgements Anesthesia Type Planned: MAC Pt an Appropriate Candidate for the Planned Anesthesia: Yes Alternatives and Risks of Anesthesia Discussed w Pt/Guardian: Yes Pt/Guardian Understands and Agrees with Anesthesia Plan: Yes PreAnesthesia Questionnaire HEENT History: Reports: Impaired Vision, Other (See Below) Other HEENT History: wears glasses Cardiovascular History: Reports: High Cholesterol (under control with medications) Gastrointestinal History: Reports: GERD Other Gastrointestinal History: occasional heartburn- takes Omeprazole as needed Musculoskeletal History: Reports: Arthritis Endocrine/Metabolic History: Reports: Diabetes, Type II (17-18 years, last A1c was over 8, change dose of lentis since), Other (See Below) (lost 47 pounds from pancreatic cancer) Oncologic (Cancer) History: Reports: Basal Cell Carcinoma, Pancreatic (extended into blood vessels and gall bladder) - Infectious Disease History Infectious Disease History: Reports: Chicken Pox - Past Surgical History GI Surgical History: Reports: Appendectomy, EGD Male Surgical History: Reports: Vasectomy Musculoskeletal Surgical History: Reports: Arthroscopic Knee - SUBSTANCE USE Smoking Status *Q: Former Smoker Tobacco Use Within Last Twelve Months: No Recreational Drug Use History: No - HOME MEDS Home Medications: Home Meds Empagliflozin [Jardiance] 25 mg PO QAM 01/13/20 [History] Insulin Glarg,Human.Rec.Analog [Lantus] 42 unit SQ BEDTIME 01/13/20 [History] Omeprazole Magnesium [Prilosec Otc] 20 mg PO DAILY PRN 01/13/20 [History] Rosuvastatin [Crestor] 10 mg PO BEDTIME 01/13/20 [History] lisinopriL [Lisinopril] 5 mg PO QAM 01/13/20 [History] sitaGLIPtin Phos/Metformin HCl [Janumet 50-1,000 MG] 1 tab PO BID 01/13/20 [History] Amylase/Lipase/Protease [Sushma RANDOLPH 6,000 Unit] 6,000 unit PO DAILY 05/26/20 [History] Aspirin [Adult Low Dose Aspirin EC] 81 mg PO DAILY 05/26/20 [History] - CURRENT (IN HOUSE) MEDS Current Meds: Current Medications Lactated Ringer's (Ringers, Lactated) 1,000 mls @ 125 mls/hr IV ASDIRECTED TERESITA Discontinued Medications Midazolam HCl (Versed 1 Mg/Ml) Confirm Administered Dose 2 mg .ROUTE .STK-MED ONE Stop: 05/31/20 07:36 Propofol (Diprivan 20 Ml) Confirm Administered Dose 400 mg .ROUTE .STK-MED ONE Stop: 05/31/20 07:33
[2020-05-31] MEDS ORDERED: WATER ONE (07:50)
[2020-05-31] MEDS ORDERED: DEXTROSE ONE (07:50)
--- NOTE | 2020-05-31 08:42 | PCM.OPNOTE ---
- General Post-Op/Procedure Note Date of Surgery/Procedure: 05/31/20 Operative Procedure(s): Colonoscopy with biopsies of rectal and rectosigmoid tumors Pre Op Diagnosis: Rectal bleeding. Unexplained weight loss. Biopsy-proven pancreatic cancer. Post-Op Diagnosis: Rectal tumor at 17 cm from the anal verge and rectosigmoid tumor at 22 cm from the anal verge. Tumors appears separate. Anesthesia Technique: MAC (ASA III) Primary Surgeon: Erlin Hernandez Condition: Good Free Text/Narrative:: DICTATION [id number] CPT CODE 25409
[2020-05-31] MEDS ORDERED: Lactated Ringers 1,000 ML IV SCH (08:45)
--- NOTE | 2020-05-31 08:55 | PCM.POSTAN ---
POST ANESTHESIA ASSESSMENT - MENTAL STATUS Mental Status: Alert, Oriented - VITAL SIGNS Vital Signs: Last Vital Signs Temp 37.2 C 05/31/20 08:33 Pulse 71 05/31/20 08:48 Resp 17 05/31/20 08:48 BP 117/61 05/31/20 08:48 Pulse Ox 98 05/31/20 08:48 - RESPIRATORY Respiratory Status: Respiratory Rate WNL, Airway Patent, O2 Saturation Stable - CARDIOVASCULAR CV Status: Pulse Rate WNL, Blood Pressure Stable - GASTROINTESTINAL GI Status: No Symptoms - PAIN Pain Score: 0 - POST OP HYDRATION Hydration Status: Adequate & Stable Free Text/Narrative:: The patient has no complaints at this time. He tolerated the procedure well. There were no apparent anesthetic complications at this time.
--- NOTE | 2020-05-31 09:45 | PCM48HPAN ---
Post Anesthesia Note - EVALUATION WITHIN 48HRS OF ANESTHETIC Vital Signs in Normal Range: Yes Patient Participated in Evaluation: Yes Respiratory Function Stable: Yes Airway Patent: Yes Cardiovascular Function Stable: Yes Hydration Status Stable: Yes Pain Control Satisfactory: Yes Nausea and Vomiting Control Satisfactory: Yes Mental Status Recovered: Yes Vital Signs: Last Vital Signs Temp 37.2 C 05/31/20 08:33 Pulse 71 05/31/20 08:48 Resp 17 05/31/20 08:48 BP 117/61 05/31/20 08:48 Pulse Ox 98 05/31/20 08:48 - COMMENTS/OBSERVATIONS Free Text/Narrative:: No anesthesia problems
--- NOTE | 2020-05-31 12:44 | OR ---
SURGEON: Erlin Hernandez M.D. DATE OF PROCEDURE: 05/31/2020 OPERATION PERFORMED: Colonoscopy with biopsies of rectosigmoid and rectal tumors. PRIMARY SURGEON: Erlin Hernandez MD ANESTHESIA: MAC. ASA CLASSIFICATION: III. PREOPERATIVE DIAGNOSES: 1. Rectal bleeding. 2. Unexplained weight loss. 3. Biopsy-proven pancreatic cancer. POSTOPERATIVE DIAGNOSIS: Rectosigmoid and rectal tumors. DESCRIPTION OF PROCEDURE: The patient was taken to the endoscopy room and positioned on the endoscopy table in the left lateral decubitus position. Time-out was called for appropriate identification of the patient and procedure. Monitored anesthesia care was provided. The colonoscope was inserted into the rectum, and at about 17 cm, one tumor was noted. Just proximal to this, is a second tumor that is approximately 22 cm. I was able to maneuver the scope by the two tumors, although they do appear to encompass perhaps 50% of the lumen. I was able then with some difficulty to advance the colonoscope to the cecum. The cecum was identified by internal landmarks. Despite multiple maneuvers, I was not able to retroflex the scope. Pressure was also applied in the right lower quadrant to help confirm location. Once that was accomplished, the colonoscope was slowly withdrawn, carefully visualizing the cecum, ascending colon, hepatic flexure, transverse colon, splenic flexure, and descending colon. No tumors, polyps, or diverticular changes were noted anywhere in the upper tract. Again, the colonoscope was withdrawn to approximately 22 cm where the first tumor was identified. This area had several biopsies taken. The colonoscope was then further withdrawn, and beginning at about 17 cm from the anal verge, a second tumor was encountered. Separate biopsies of this area were taken. There did appear to be some normal-appearing colon in between the two tumors. Once the biopsies were completed, the colonoscope was retroflexed to visualize the anal orifice from above. No tumors or polyps were seen and there were no acute hemorrhoidal changes. The colonoscope was then straightened, the rectum aspirated, and the colonoscope removed. The patient tolerated the procedure well and was taken to recovery room in stable condition. SUREKHA / GRACIELA /[id number]
== END 2020-05-31 10:20 | disposition home or self-care (01) ==
LOC: MW.SDS 06:45
PROVIDERS: ATTEND Surgery
DX: C19 Malignant neoplasm of rectosigmoid junction (principal); C20 Malignant neoplasm of rectum; R63.4 Abnormal weight loss; C25.9 Malignant neoplasm of pancreas, unspecified; E78.00 Pure hypercholesterolemia, unspecified; E11.9 Type 2 diabetes mellitus without complications; Z79.899 Other long term (current) drug therapy; Z90.49 Acquired absence of other specified parts of digestive tract; Z98.890 Other specified postprocedural states; Z87.891 Personal history of nicotine dependence; Z72.89 Other problems related to lifestyle; Z68.23 Body mass index [BMI] 23.0-23.9, adult
CPT/HCPCS: 36415; 45380; 82378; 82962; 88305; J2250; J2704; J7060; J7120

== ENCOUNTER 2020-06-11 12:53 | Emergency (ER) | payer BC, MEDICARE ==
[2020-06-11] MEDS ORDERED: Sodium Chloride 0.9% 10 ML Syringe FLUSH PRN (13:55)
[2020-06-11] MEDS ORDERED: Sodium Chloride 0.9% 2.5 ML Syringe FLUSH PRN (13:55)
[2020-06-11 14:31] LABS: BLOOD UREA NITROGEN,BUN 21 mg/dL (7.0-18.0); CARBON DIOXIDE,CO2 25.2 mmol/L (21.0-32.0); CHLORIDE,CL 103 mmol/L (98-107); GLUCOSE RANDOM 99 mg/dL (74-106); LIPASE 143 U/L (73-393); POTASSIUM,K 3.7 mmol/L (3.5-5.1); SODIUM,NA 139 mmol/L (136-148)
--- NOTE | 2020-06-11 14:48 | EDM.PDOC ---
ED HPI GENERAL MEDICAL PROBLEM - General Chief Complaint: Abdominal Pain Stated Complaint: PAIN IN BACK/ABDOMEN Time Seen by Provider: 06/11/20 13:15 Source of Information: Reports: Patient History Limitations: Reports: No Limitations - History of Present Illness INITIAL COMMENTS - FREE TEXT/NARRATIVE: HISTORY AND PHYSICAL: History of present illness: Patient is a 64-year-old male who presents to the ED today with concern of abdominal pain with recent pancreatic cancer and colon cancer diagnosis. On 05/04/2020, patient was transferred to [place] with concern of a pancreatic mass. Patient states at that time he was further transferred to [place] and had a biopsy-proven pancreatic adenocarcinoma. Patient states that he was discharged from [place] and has multiple follow-up visits scheduled. Patient states on 05/31/2020 he had a colonoscopy done by Dr. Hernandez, general surgery where he had 2 tumors of his colon that were biopsied and showed colorectal adenocarcinoma. Patient states that he was supposed to get a port put in tomorrow in order to receive chemotherapy and was tested for COVID for a preop test and states that he tested positive for COVID 5 days ago so getting a port is delayed at this time. Patient states he also is supposed to meet with the oncologist, Dr. Del Angel out of [place] but states that he has not yet done this. Patient states this morning when he woke up he had 10 out of 10 abdominal pain and took ibuprofen and states that this did not help his pain. Patient states that he had some leftover oxycodone from a prior knee surgery and states that he took 1 oxycodone at noon today. Patient states currently his abdominal pain is a 1 or 2/10 but states that a friend of his was concerned about his pain so wanted him to come to the emergency room to be evaluated. Patient denies any other symptoms or concerns. Patient states that he has had 2-3 bowel movements today. Patient denies fever, chills, chest pain, shortness of breath, or cough. Denies headache, neck stiff ness, change in vision, syncope, or near syncope. Denies nausea, vomiting, diarrhea, constipation, or dysuria. Has not noted any blood in urine or stool. Patient has been eating and drinking appropriately. Review of systems: As per history of present illness and below otherwise all systems reviewed and negative. Past medical history: As per history of present illness and as reviewed below otherwise noncontributory. Surgical history: As per history of present illness and as reviewed below otherwise noncontributory. Social history: See social history for further information Family history: As per history of present illness and as reviewed below otherwise noncontributory. Physical exam: General: Patient is alert, oriented, and in no acute distress. Patient laying comfortably on exam table. HEENT: Atraumatic, normocephalic, pupils equal and reactive bilaterally, negative for conjunctival pallor or scleral icterus, mucous membranes moist, TMs normal bilaterally, throat clear, neck supple, nontender, trachea midline. No drooling or trismus noted. No meningeal signs. No hot potato voice noted. Lungs: Patient speaking clearly without breathlessness, no wheezing or stridor, no accessory muscle use or respiratory distress. Auscultation deferred due to current COV-ID 19 outbreak. Heart: Auscultation deferred due to current COV-ID 19 outbreak. Abdomen: Soft, nondistended, nontender. Negative for masses or hepatosplenomegaly. Negative for costovertebral tenderness. Pelvis: Stable nontender. Genitourinary: Deferred. Rectal: Deferred. Skin: Intact, warm, dry. No lesions or rashes noted. Extremities: Atraumatic, negative for cords or calf pain. Neurovascular unremarkable. Neuro: Awake, alert, oriented. Cranial nerves II through XII unremarkable. Cerebellum unremarkable. Motor and sensory unremarkable throughout. Exam nonfocal. Notes: Pain medication was offered to patient but he declines at this time stating his pain is well managed after taking 1 oxycodone tab at noon. CXR and abd/pelvic CT w cont offered and highly encouraged to patient but he declines at this time. Admission for observation offered to jaylen but he declines requesting discharge to home.All risks vs benefits discussed with patient and expresses understanding. Signs and symptoms that would prompt return to the ED thoroughly discussed with patient. Discussed importance for following up with his oncologist as discussed. Voices understanding and is agreeable to plan of care. Denies any further questions or concerns at this time. Diagnostics: CBC, CMP, EKG, troponin, lipase, UA (declines CXR and abd/pelvic CT) Therapeutics: Declines Prescription: None Impression: Abdominal pain H/O pancreatic cancer / colon cancer Plan: 1. Continue to alternate ibuprofen and Tylenol as directed for pain and discomfort. You can continue to use the oxycodone you have available to you as needed for moderate to severe pain as prescribed. 2. Follow-up with your oncologist as discussed. Return to the ED as needed and as discussed. Definitive disposition and diagnosis as appropriate pending reevaluation and review of above. abdomen and back Pain Score (Numeric/FACES): 4 - Related Data Allergies Allergy/AdvReac Type Severity Reaction Status Date / Time No Known Allergies Allergy Verified 06/11/20 13:30 Home Meds: Home Meds Empagliflozin [Jardiance] 25 mg PO QAM 01/13/20 [History] Insulin Glarg,Human.Rec.Analog [Lantus] 42 unit SQ BEDTIME 01/13/20 [History] Omeprazole Magnesium [Prilosec Otc] 20 mg PO DAILY PRN 01/13/20 [History] Rosuvastatin [Crestor] 10 mg PO BEDTIME 01/13/20 [History] lisinopriL [Lisinopril] 5 mg PO QAM 01/13/20 [History] sitaGLIPtin Phos/Metformin HCl [Janumet 50-1,000 MG] 1 tab PO BID 01/13/20 [History] Amylase/Lipase/Protease [Creon DR 6,000 Unit] 6,000 unit PO DAILY 05/26/20 [History] Aspirin [Adult Low Dose Aspirin EC] 81 mg PO DAILY 05/26/20 [History] Past Medical History HEENT History: Reports: Impaired Vision, Other (See Below) Other HEENT History: wears glasses Cardiovascular History: Reports: High Cholesterol Gastrointestinal History: Reports: Cholelithiasis, Other (See Below) Other Gastrointestinal History: pancreatic ca dx on apr 2020, colon dx 1.5week ago Genitourinary History: Reports: None Musculoskeletal History: Reports: Arthritis Endocrine/Metabolic History: Reports: Diabetes, Type II Oncologic (Cancer) History: Reports: Basal Cell Carcinoma Dermatologic History: Reports: None - Infectious Disease History Infectious Disease History: Reports: Measles - Past Surgical History Head Surgeries/Procedures: Reports: None HEENT Surgical History: Reports: None Cardiovascular Surgical History: Reports: None GI Surgical History: Reports: Appendectomy Male Surgical History: Reports: Vasectomy Endocrine Surgical History: Reports: None Musculoskeletal Surgical History: Reports: None Dermatological Surgical History: Reports: Skin Biopsy Social & Family History - Family History Family Medical History: Noncontributory - Tobacco Use Smoking Status *Q: Former Smoker Used Tobacco, but Quit: Yes Month/Year Tobacco Last Used: 1999 - Caffeine Use Caffeine Use: Reports: Coffee - Recreational Drug Use Recreational Drug Use: No ED ROS GENERAL - Review of Systems Review Of Systems: Comprehensive ROS is negative, except as noted in HPI. ED EXAM, GENERAL - Physical Exam Exam: See Below (see dictation) Course - Vital Signs Last Recorded V/S: Last Vital Signs Temp 96.5 F L 06/11/20 13:26 Pulse 92 06/11/20 13:45 Resp 18 06/11/20 13:45 BP 109/60 06/11/20 13:45 Pulse Ox 96 06/11/20 13:45 - Orders/Labs/Meds Orders: Active Orders 24 hr Category Date Time Status EKG Documentation Completion [RC] STAT Care 06/11/20 14:20 Active UA RFX BERNABE AND CULT IF INDIC [URIN] Stat Lab 06/11/20 13:55 Ordered Sodium Chloride 0.9% [Saline Flush] Med 06/11/20 13:55 Active 10 ml FLUSH ASDIRECTED PRN Sodium Chloride 0.9% [Saline Flush] Med 06/11/20 13:55 Active 2.5 ml FLUSH ASDIRECTED PRN Saline Lock Insert [OM.PC] Stat Oth 06/11/20 13:55 Ordered Medication Orders Sodium Chloride (Saline Flush) 10 ml FLUSH ASDIRECTED PRN PRN Reason: Keep Vein Open Sodium Chloride (Saline Flush) 2.5 ml FLUSH ASDIRECTED PRN PRN Reason: Keep Vein Open Labs: Laboratory Tests 06/11/20 06/11/20 06/11/20 Range/Units 13:35 13:35 13:36 WBC 11.01 H (4.0-11.0) K/uL RBC 5.09 (4.50-5.90) M/uL Hgb 13.9 (13.0-17.0) g/dL Hct 42.6 (38.0-50.0) % MCV 83.7 (80.0-98.0) fL MCH 27.3 (27.0-32.0) pg MCHC 32.6 (31.0-37.0) g/dL RDW Std Deviation 39.9 (28.0-62.0) fl RDW Coeff of Wild 13 (11.0-15.0) % Plt Count 230 (150-400) K/uL MPV 8.40 (7.40-12.00) fL Neut % (Auto) 81.4 H (48.0-80.0) % Lymph % (Auto) 10.0 L (16.0-40.0) % [place] % (Auto) 8.3 (0.0-15.0) % Eos % (Auto) 0.2 (0.0-7.0) % Baso % (Auto) 0.1 (0.0-1.5) % Neut # (Auto) 9.0 H (1.4-5.7) K/uL Lymph # (Auto) 1.1 (0.6-2.4) K/uL [place] # (Auto) 0.9 H (0.0-0.8) K/uL Eos # (Auto) 0.0 (0.0-0.7) K/uL Baso # (Auto) 0.0 (0.0-0.1) K/uL Nucleated RBC % 0.0 /100WBC Nucleated RBCs # 0 K/uL Sodium 139 (136-148) mmol/L Potassium 3.7 (3.5-5.1) mmol/L Chloride 103 (98-107) mmol/L Carbon Dioxide 25.2 (21.0-32.0) mmol/L BUN 21 H (7.0-18.0) mg/dL Creatinine 0.7 L (0.8-1.3) mg/dL Est Cr Clr Drug Dosing 122.02 mL/min Estimated GFR (MDRD) > 60.0 ml/min Glucose 99 (74-106) mg/dL Calcium 8.8 (8.5-10.1) mg/dL Total Bilirubin 0.6 (0.2-1.0) mg/dL AST 15 (15-37) IU/L ALT 26 (14-63) IU/L Alkaline Phosphatase 82 (46-116) U/L Troponin I < 0.050 (0.000-0.056) ng/mL Total Protein 6.8 (6.4-8.2) g/dL Albumin 3.4 (3.4-5.0) g/dL Globulin 3.4 (2.6-4.0) g/dL Albumin/Globulin Ratio 1.0 (0.9-1.6) Lipase 143 (73-393) U/L Meds: Medications Generic Name Dose Route Start Last Admin Trade Name Freq PRN Reason Stop Dose Admin Sodium Chloride 10 ml 06/11/20 13:55 Saline Flush FLUSH ASDIRECTED PRN Keep Vein Open Sodium Chloride 2.5 ml 06/11/20 13:55 Saline Flush FLUSH ASDIRECTED PRN Keep Vein Open Departure - Departure Time of Disposition: 14:58 Disposition: Home, Self-Care 01 Clinical Impression: History of pancreatic cancer, History of colon cancer Abdominal pain Qualifiers: Abdominal location: generalized Qualified Code(s): R10.84 - Generalized abdominal pain - Discharge Information Referrals: Blas Fernández MD [Primary Care Provider] - Forms: ED Department Discharge Additional Instructions: The following information is given to patients seen in the emergency department who are being discharged to home. This information is to outline your options for follow-up care. We provide all patients seen in our emergency department with a follow-up referral. The need for follow-up, as well as the timing and circumstances, are variable depending upon the specifics of your emergency department visit. If you don't have a primary care physician on staff, we will provide you with a referral. We always advise you to contact your personal physician following an emergency department visit to inform them of the circumstance of the visit and for follow-up with them and/or the need for any referrals to a consulting specialist. The emergency department will also refer you to a specialist when appropriate. This referral assures that you have the opportunity for follow-up care with a specialist. All of these measure are taken in an effort to provide you with optimal care, which includes your follow-up. Under all circumstances we always encourage you to contact your private physician who remains a resource for coordinating your care. When calling for follow-up care, please make the office aware that this follow-up is from your recent emergency room visit. If for any reason you are refused follow-up, please contact the [facility] Emergency Department at and asked to speak to the emergency department charge nurse. [facility] [address] [place] [address] [facility] [address] [place] [address] 1. Continue to alternate ibuprofen and Tylenol as directed for pain and discomfort. You can continue to use the oxycodone you have available to you as needed for moderate to severe pain as prescribed. 2. Follow-up with your oncologist as discussed. Return to the ED as needed and as discussed. Sepsis Event Note (ED) - Evaluation Sepsis Screening Result: No Definite Risk - Focused Exam Vital Signs: Vital Signs Temp Pulse Resp BP Pulse Ox 06/11/20 13:45 92 18 109/60 96 06/11/20 13:26 96.5 F L 108 H 20 182/144 H 97 - My Orders Last 24 Hours: My Active Orders 06/11/20 13:55 UA RFX BERNABE AND CULT IF INDIC [URIN] Stat Sodium Chloride 0.9% [Saline Flush] 10 ml FLUSH ASDIRECTED PRN Sodium Chloride 0.9% [Saline Flush] 2.5 ml FLUSH ASDIRECTED PRN Saline Lock Insert [OM.PC] Stat 06/11/20 14:20 EKG Documentation Completion [RC] STAT - Assessment/Plan Last 24 Hours: My Active Orders 06/11/20 13:55 UA RFX BERNABE AND CULT IF INDIC [URIN] Stat Sodium Chloride 0.9% [Saline Flush] 10 ml FLUSH ASDIRECTED PRN Sodium Chloride 0.9% [Saline Flush] 2.5 ml FLUSH ASDIRECTED PRN Saline Lock Insert [OM.PC] Stat 06/11/20 14:20 EKG Documentation Completion [RC] STAT
== END 2020-06-11 15:28 | disposition home or self-care (01) ==
LOC: MW.ED 12:53
DX: R10.84 Generalized abdominal pain (principal); C18.9 Malignant neoplasm of colon, unspecified; C78.89 Secondary malignant neoplasm of other digestive organs; E11.9 Type 2 diabetes mellitus without complications; Z79.4 Long term (current) use of insulin; Z79.82 Long term (current) use of aspirin; Z79.899 Other long term (current) drug therapy; Z90.49 Acquired absence of other specified parts of digestive tract; Z87.891 Personal history of nicotine dependence
CPT/HCPCS: 36415; 80053; 83690; 84484; 85025; 93005; 99283; 99284-25

== ENCOUNTER 2020-06-19 07:45 | Day surgery (SDC) | payer BC, MEDICARE ==
[~2020-06-19 07:45] MED LIST changes: -Lactated Ringers 1,000 ML IV SCH; +Lidocaine 2% 5 ML SDV ONE; +Midazolam 1 MG/ML 2 ML SDV ONE; +Propofol 200 MG/20 ML SDV ONE; +fentaNYL 100 MCG/2 ML SDV ONE
[2020-06-19] MEDS ORDERED: ceFAZolin 2 GM in Premix Bag 1 BAG IV SCH (08:00)
[2020-06-19] MEDS ORDERED: Heparin Sodium 100 Units/ML 3 ML Syringe ONE (08:10)
[2020-06-19] MEDS ORDERED: Bupivacaine 0.5% 10 ML SDV ONE (08:10)
--- NOTE | 2020-06-19 08:25 | PCM.PREANE ---
Preanesthetic Assessment - Anesthesia/Transfusion/Family Hx Anesthesia History: Prior Anesthesia Without Reaction Family History of Anesthesia Reaction: No Transfusion History: No Prior Transfusion(s) Intubation History: Unknown - Review of Systems General: No Symptoms Pulmonary: No Symptoms Cardiovascular: No Symptoms Gastrointestinal: No Symptoms Neurological: No Symptoms Other: Reports: None - Physical Assessment NPO Status Date: 06/18/20 Height: 6 ft 4 in Weight: 89.358 kg ASA Class: 2 Mental Status: Alert & Oriented x3 Airway Class: Mallampati = 2 Dentition: Reports: Normal Dentition ROM/Head Extension: Full Lungs: Clear to Auscultation, Normal Respiratory Effort Cardiovascular: Regular Rate, Regular Rhythm - Lab Values: Laboratory Last Values POC Glucose 169 mg/dL (60-110) H 06/19/20 08:04 - Allergies Allergies/Adverse Reactions: Allergies Allergy/AdvReac Type Severity Reaction Status Date / Time No Known Allergies Allergy Verified 06/14/20 12:01 - Anesthesia Plan Pre-Op Medication Ordered: None - Acknowledgements Anesthesia Type Planned: MAC Pt an Appropriate Candidate for the Planned Anesthesia: Yes Alternatives and Risks of Anesthesia Discussed w Pt/Guardian: Yes Pt/Guardian Understands and Agrees with Anesthesia Plan: Yes Additional Comments: PMH: dm2- on insulin, dose reduced by halp last pm, arrival glucose was 160, gerd PLAN: mac PreAnesthesia Questionnaire HEENT History: Reports: Impaired Vision, Other (See Below) Other HEENT History: wears glasses Cardiovascular History: Reports: High Cholesterol Gastrointestinal History: Reports: Colon Polyp, Other (See Below) Other Gastrointestinal History: pancreatic ca dx on apr 2020, colon dx 1.5week ago Genitourinary History: Reports: None Musculoskeletal History: Reports: Arthritis Endocrine/Metabolic History: Reports: Diabetes, Type II Oncologic (Cancer) History: Reports: Basal Cell Carcinoma, Colon, Pancreatic Dermatologic History: Reports: None - Infectious Disease History Infectious Disease History: Reports: Measles - Past Surgical History Head Surgeries/Procedures: Reports: None HEENT Surgical History: Reports: None Cardiovascular Surgical History: Reports: None GI Surgical History: Reports: Appendectomy, Colonoscopy, EGD Male Surgical History: Reports: Vasectomy Endocrine Surgical History: Reports: None Musculoskeletal Surgical History: Reports: Arthroscopic Knee Oncologic Surgical History: Reports: None Dermatological Surgical History: Reports: Skin Biopsy - SUBSTANCE USE Smoking Status *Q: Former Smoker Tobacco Use Within Last Twelve Months: No Recreational Drug Use History: No - HOME MEDS Home Medications: Home Meds Empagliflozin [Jardiance] 25 mg PO QAM 01/13/20 [History] Insulin Glarg,Human.Rec.Analog [Lantus] 40 unit SQ BEDTIME 01/13/20 [History] Omeprazole Magnesium [Prilosec Otc] 20 mg PO DAILY PRN 01/13/20 [History] Rosuvastatin [Crestor] 10 mg PO BEDTIME 01/13/20 [History] lisinopriL [Lisinopril] 5 mg PO QAM 01/13/20 [History] sitaGLIPtin Phos/Metformin HCl [Janumet 50-1,000 MG] 1 tab PO BID 01/13/20 [Hi story] Amylase/Lipase/Protease [Sushma RANDOLPH 6,000 Unit] 6,000 unit PO DAILY 05/26/20 [History] Aspirin [Adult Low Dose Aspirin EC] 81 mg PO DAILY 05/26/20 [History] - CURRENT (IN HOUSE) MEDS Current Meds: Current Medications Cefazolin Sodium/Dextrose 2 gm (/ Premix) 50 mls @ 100 mls/hr IV ONETIME TERESITA Discontinued Medications Bupivacaine HCl (Sensorcaine-Mpf 0.5%) Confirm Administered Dose 10 ml .ROUTE .STK-MED ONE Stop: 06/19/20 08:11 Fentanyl (Sublimaze) Confirm Administered Dose 100 mcg .ROUTE .STK-MED ONE Stop: 06/19/20 07:46 Heparin Sodium (Porcine) (Heparin Lock Flush 100 Units/Ml) Confirm Administered Dose 900 unit .ROUTE .STK-MED ONE Stop: 06/19/20 08:11 Lidocaine (Xylocaine-Mpf 2%) Confirm Administered Dose 5 ml .ROUTE .STK-MED ONE Stop: 06/19/20 07:45 Lidocaine HCl (Xylocaine-Mpf 1%) Confirm Administered Dose 10 ml .ROUTE .STK-MED ONE Stop: 06/19/20 08:11 Midazolam HCl (Versed 1 Mg/Ml) Confirm Administered Dose 2 mg .ROUTE .STK-MED ONE Stop: 06/19/20 07:46 Propofol (Diprivan 20 Ml) Confirm Administered Dose 400 mg .ROUTE .STK-MED ONE Stop: 06/19/20 07:46
[2020-06-19] MEDS ORDERED: ceFAZolin/Dextrose,Iso-Osmotic 2 GM/50 ML Duplex Bag IV ONE (09:31)
[2020-06-19] MEDS ORDERED: Propofol 200 MG/20 ML SDV ONE ×2 (09:57→10:24)
[2020-06-19] MEDS ORDERED: Acetaminophen/HYDROcodone 325-10 MG Tab PO PRN (11:13)
[2020-06-19] MEDS ORDERED: Lactated Ringers 1,000 ML IV SCH (11:15)
--- NOTE | 2020-06-19 11:15 | PCM.OPNOTE ---
- General Post-Op/Procedure Note Date of Surgery/Procedure: 06/19/20 Operative Procedure(s): Placement of Bard port via left subclavian vein using Seldinger technique. Pre Op Diagnosis: Carcinoma of the pancreas. Carcinoma of the sigmoid colon. Post-Op Diagnosis: Same Anesthesia Technique: MAC (ASA III) Primary Surgeon: Erlin Hernandez Fluid Replacement, Intraop: 900 EBL in mLs: 10 Condition: Good Free Text/Narrative:: DICTATION 437074 CPT CODE 46542
[2020-06-19] MEDS: fentaNYL 100 MCG/2 ML SDV IVPUSH PRN ×2 (11:26→11:38)
--- NOTE | 2020-06-19 11:48 | PCM.POSTAN ---
POST ANESTHESIA ASSESSMENT - MENTAL STATUS Mental Status: Alert - VITAL SIGNS Vital Signs: Last Vital Signs Temp 36.6 C 06/19/20 11:01 Pulse 63 06/19/20 11:41 Resp 12 06/19/20 11:41 BP 124/64 06/19/20 11:41 Pulse Ox 96 06/19/20 11:41 - RESPIRATORY Respiratory Status: Respiratory Rate WNL - CARDIOVASCULAR CV Status: Pulse Rate WNL - POST OP HYDRATION Hydration Status: Adequate & Stable
--- NOTE | 2020-06-19 12:31 | CR ---
Chest: Portable view of the chest was obtained. Comparison: No previous chest imaging is available. Left-sided infusion port is seen. No pneumothorax is appreciated. Tip of the catheter is not well seen but felt to lie close to the right atrial and superior vena cava junction. Lungs are clear with no acute parenchymal change. Bony structures are unremarkable. Impression: 1. Left-sided port. 2. Nothing acute is otherwise seen on frontal chest x-ray. Diagnostic code #2 This report was dictated in MDT
--- NOTE | 2020-06-19 13:32 | PCM48HPAN ---
Post Anesthesia Note - EVALUATION WITHIN 48HRS OF ANESTHETIC Vital Signs in Normal Range: Yes Patient Participated in Evaluation: Yes Respiratory Function Stable: Yes Airway Patent: Yes Cardiovascular Function Stable: Yes Hydration Status Stable: Yes Pain Control Satisfactory: Yes Nausea and Vomiting Control Satisfactory: Yes Mental Status Recovered: Yes Vital Signs: Last Vital Signs Temp 97.9 F 06/19/20 11:01 Pulse 85 06/19/20 11:50 Resp 14 06/19/20 11:50 BP 129/71 06/19/20 11:50 Pulse Ox 96 06/19/20 11:50
--- NOTE | 2020-06-19 17:20 | OR ---
SURGEON: Erlin Hernandez M.D. DATE OF PROCEDURE: 06/19/2020 OPERATION PERFORMED: Placement of Bard port via left subclavian vein using Seldinger technique. PRIMARY SURGEON: Erlin Hernandez MD. ANESTHESIA: Local MAC. ASA CLASSIFICATION: III. PREOPERATIVE DIAGNOSES: 1. Carcinoma of the pancreas. 2. Carcinoma of the colon. POSTOPERATIVE DIAGNOSES: 1. Carcinoma of the pancreas. 2. Carcinoma of the colon. ESTIMATED BLOOD LOSS: 10 mL. INTRAOPERATIVE FLUID REPLACEMENT: 900 mL of crystalloid. DESCRIPTION OF PROCEDURE: The patient was taken to the operating room and placed on the operating table in the supine position. Time-out was called for appropriate identification of the patient and procedure. The surgical site had been marked prior to the patient entering the operating room. The chest was now prepped with ChloraPrep solution and sterile drapes were applied. Initial attempt was made for a left cephalic vein approach. The skin overlying the left deltopectoral groove was infiltrated with 1% Xylocaine and 0.5% Marcaine solution. Incision was made and deepened through the subcutaneous tissue obtaining hemostasis with the use of electrocautery. Dissection was carried into the left deltopectoral groove where a very small cephalic vein was identified. This was infiltrated with local anesthesia and did distend a little bit. It was elected to attempt passing the catheter through the cephalic vein. The distal side was ligated with a 3-0 Vicryl. The proximal side was encircled with two 3-0 Vicryl. A small venotomy was made; however, the catheter would not satisfactorily advance through the vein. Therefore, the proximal vein was tied off. Our attention was then turned to the left subclavian space. The left subclavian vein was cannulated without difficulty. At the first attempt at passing a guidewire, the guidewire did not want to thread and was removed. A second guidewire was brought to the operating table and under fluoroscopy was able to be positioned in the superior vena cava. The needle was then removed, and the peel-away sheath and introducer were passed over the guidewire into the left subclavian vein without difficulty. The guidewire and introducer were removed and the catheter was inserted through the peel-away sheath with the aid of fluoroscopy. This was then positioned in the superior vena cava. There was good return of blood. Having removed the peel- away sheath, our attention was then turned to the left chest. Appropriate site for placement of the port was identified and the skin infiltrated with 0.5% Marcaine solution. Incision was made down to the pectoralis major fascia and a generous subcutaneous pocket was made. With care taken to avoid an air embolus and using the dissector, the catheter was connected and positioned through the deltopectoral incision and then onto the chest wall incision. Again, care was taken to keep the catheter occluded to avoid an air embolus. It should also be noted that prior to insertion both catheter and port had been filled with heparinized saline. Once that was accomplished and now with the catheter brought to the chest wall incision, the catheter was cut to appropriate length and the catheter and port were assembled with the locking device secured. Wounds were inspected for hemostasis and bleeding sites were electrocoagulated. The port did flush easily. The port was then secured to the underlying chest wall with interrupted 2-0 silk. The deltopectoral and chest wall incisions were then closed in 2 layers approximating the subcutaneous tissue with 3-0 Vicryl and the skin with subcuticular 4-0 Monocryl. The small puncture site for insertion under the clavicle was closed with 3-0 Vicryl. All wounds were steri- stripped and dressed with sterile Tegaderm pads. Sponge, needle, and instrument counts were all correct. The patient was taken to recovery room in stable condition. SUREKHA / GRACIELA /[id number]
--- NOTE | 2020-06-19 19:26 | CR ---
Chest: 2 fluoroscopic spot views were obtained of the chest. Study was obtained during Port-A-Cath placement. The Port-A-Cath appears to be within the area of the superior vena cava. Fluoroscopy time given is 128.3 seconds. Impression: 1. Procedural study as noted above. Diagnostic code #2 This report was dictated in MDT
== END 2020-06-19 12:50 | disposition home or self-care (01) ==
LOC: MW.SDS 07:45
PROVIDERS: ATTEND Surgery
DX: C25.9 Malignant neoplasm of pancreas, unspecified (principal); C18.9 Malignant neoplasm of colon, unspecified; E78.00 Pure hypercholesterolemia, unspecified; E11.9 Type 2 diabetes mellitus without complications; Z79.82 Long term (current) use of aspirin; Z79.899 Other long term (current) drug therapy; Z79.4 Long term (current) use of insulin; Z90.89 Acquired absence of other organs; Z87.891 Personal history of nicotine dependence
CPT/HCPCS: 36561; 71045; 76000; 82962; A9270; C1788; J0690; J1642; J2001; J2250; J2704; J3010; J3490; 00400

== ENCOUNTER 2022-10-02 10:23 | Observation (INO) | payer MEDICARE, OTHER ==
[2022-10-02] MEDS ORDERED: Sodium Chloride 0.9% 1,000 ML IV ONE (10:27)
[2022-10-02] MEDS ORDERED: 50% Dextrose in Water 50 ML Syringe IVPUSH PRN ×2 (10:51→13:47)
[2022-10-02 11:13] LABS: CARBON DIOXIDE,CO2 28.1 mmol/L (21.0-32.0); POTASSIUM,K 3.2 mmol/L (3.5-5.1)
[2022-10-02 11:37] LABS: CORONAVIRUS COVID-19 NAA NEGATIVE (NEGATIVE); INFLUENZA A NAA POSITIVE (NEGATIVE); INFLUENZA B NAA NEGATIVE (NEGATIVE); RESPIRATORY SYNCYTIAL VIR NAA NEGATIVE (NEGATIVE)
[2022-10-02] MEDS ORDERED: Potassium Chloride 20 MEQ Tab.ER PO ONE (13:42)
[2022-10-02] MEDS ORDERED: Polyethylene Glycol 3350 Powder 17 GM Packet PO PRN (13:43)
[2022-10-02] MEDS ORDERED: Acetaminophen 325 MG Tab PO PRN (13:43)
[2022-10-02] MEDS ORDERED: Sodium Chloride 0.9% 2.5 ML Syringe FLUSH PRN (13:43)
[2022-10-02] MEDS ORDERED: Docusate Sodium 100 MG Cap PO PRN (13:43)
[2022-10-02] MEDS ORDERED: Sodium Chloride 0.9% 10 ML Syringe FLUSH PRN (13:43)
[2022-10-02] MEDS ORDERED: Ondansetron 4 MG/2 ML SDV IVPUSH PRN (13:43)
[2022-10-02] MEDS ORDERED: Oseltamivir 75 MG Cap PO SCH (14:00)
[2022-10-02 14:32] LABS: HEMOGLOBIN A1C 6.7 %
[2022-10-02] MEDS ORDERED: Magnesium Sulfate/Water 2 GM in Premix Bag 1 BAG IV ONE (14:45)
[2022-10-02] MEDS ORDERED: Furosemide 40 MG/4 ML VIAL IVPUSH ONE (14:53)
[2022-10-02] MEDS ORDERED: Acetaminophen/HYDROcodone 325-10 MG Tab PO PRN (18:00)
[2022-10-02] MEDS ORDERED: Omeprazole 20 MG Cap.CR PO PRN (18:00)
[2022-10-02] MEDS: LIPASE PO SCH (19:19)
[2022-10-02] MEDS: AMYLASE PO SCH (19:19)
[2022-10-02] MEDS: PROTEASE PO SCH (19:19)
[2022-10-02] MEDS ORDERED: Insulin Glargine,Hum.Rec.Anlog 100 UNIT/ML 3 ML Pen SUBCUT SCH (21:00)
[2022-10-02] MEDS ORDERED: Rosuvastatin 10 MG Tab PO SCH (21:00)
[2022-10-03 06:15] LABS: CARBON DIOXIDE,CO2 29.2 mmol/L (21.0-32.0); POTASSIUM,K 3.3 mmol/L (3.5-5.1)
[2022-10-03] MEDS: AMYLASE PO SCH (08:35)
[2022-10-03] MEDS: PROTEASE PO SCH (08:35)
[2022-10-03] MEDS: LIPASE PO SCH (08:35)
[2022-10-03] MEDS ORDERED: Lisinopril 5 MG Tab PO SCH (09:00)
[2022-10-03] MEDS ORDERED: Insulin Glargine,Hum.Rec.Anlog 100 UNIT/ML 3 ML Pen SUBCUT STA (11:14)
== END 2022-10-03 12:10 | disposition home or self-care (01) ==
LOC: MW.ED 10:23 → MW.MS 13:14
PROVIDERS: ADMIT Internal Medicine; ATTEND Internal Medicine
DX: E11.649 Type 2 diabetes mellitus with hypoglycemia without coma (principal); E87.6 Hypokalemia; R60.9 Edema, unspecified; E83.42 Hypomagnesemia; C25.9 Malignant neoplasm of pancreas, unspecified; C18.9 Malignant neoplasm of colon, unspecified; J10.1 Influenza due to other identified influenza virus with other respiratory manifestations; C78.7 Secondary malignant neoplasm of liver and intrahepatic bile duct; I10 Essential (primary) hypertension; M19.90 Unspecified osteoarthritis, unspecified site; E78.00 Pure hypercholesterolemia, unspecified; I44.4 Left anterior fascicular block; Z79.4 Long term (current) use of insulin; Z79.899 Other long term (current) drug therapy; Z79.82 Long term (current) use of aspirin; Z20.822 Contact with and (suspected) exposure to COVID-19; Z90.49 Acquired absence of other specified parts of digestive tract; Z98.890 Other specified postprocedural states
CPT/HCPCS: 0241U; 36415; 71045; 80048; 80053; 82947; 83036; 83735; 85025; 93005; 96360; 96361; 99285; A9270; J1642; J1940; J3475; J7030; 93010; 99284

== ENCOUNTER 2023-01-18 15:44 | Emergency (ER) | payer MEDICARE, OTHER ==
[2023-01-18] MEDS ORDERED: Sodium Chloride 0.9% 10 ML Syringe FLUSH PRN (16:05)
[2023-01-18] MEDS ORDERED: Sodium Chloride 0.9% 2.5 ML Syringe FLUSH PRN (16:05)
[2023-01-18] MEDS ORDERED: Bisacodyl 10 MG Supp RECTAL ONE (16:06)
[2023-01-18] MEDS ORDERED: Bisacodyl 5 MG Tab PO ONE (16:06)
[2023-01-18] MEDS ORDERED: Sodium Chloride 0.9% 1,000 ML IV ONE (16:06)
[2023-01-18] MEDS ORDERED: Lactulose Soln 10 GM/15 ML 15 ML UD Cup PO ONE (16:07)
[2023-01-18 17:25] LABS: POTASSIUM,K 6.1 mmol/L (3.5-5.1)
[2023-01-18] MEDS ORDERED: Morphine 4 MG/ML Syringe IVPUSH ONE (18:21)
[2023-01-18] MEDS ORDERED: Ondansetron 4 MG/2 ML SDV IVPUSH ONE (18:22)
[2023-01-18] MEDS ORDERED: Heparin Sodium 100 Units/ML 3 ML Syringe FLUSH STA (19:07)
== END 2023-01-18 19:12 | disposition home or self-care (01) ==
LOC: MW.ED 15:44
DX: C25.9 Malignant neoplasm of pancreas, unspecified (principal); C18.9 Malignant neoplasm of colon, unspecified; E86.0 Dehydration; K56.609 Unspecified intestinal obstruction, unspecified as to partial versus complete obstruction; E78.00 Pure hypercholesterolemia, unspecified; E11.9 Type 2 diabetes mellitus without complications; M19.90 Unspecified osteoarthritis, unspecified site; Z79.82 Long term (current) use of aspirin; Z79.899 Other long term (current) drug therapy
CPT/HCPCS: 36415; 74176; 80053; 83690; 85025; 93005; 96361; 96374; 96375; 99284; A9270; J1642; J2270; J2405; J3490; J7030; 93010